=== PATIENT | male | born 1990 | race Caucasian/White ===

== ENCOUNTER 2022-07-16 12:42 | Emergency (ER) | payer MEDICAID, SELFPAY ==
[2022-07-16 13:01] VITALS: BP 150/82; PULSE 96; RESP 19; TEMP 36.7; O2SAT 95; BMI 46.8
--- NOTE | 2022-07-16 13:10 | ED_ITS ---
HPI - Back Pain/Injury General: Chief Complaint: Back Pain/Injury Stated Complaint: back pain Time Seen by Provider: 07/16/22 13:10 History of Present Illness: Patient is a 32-year-old male comes to the ED with back pain. Patient says he has chronic back pain for the past couple years and has flareups like this every couple months. Yesterday patient was working and lifting some heavy equipment. Today he was working on a vehicle and developed intense pain in his lower back. He rates the pain currently a 8 out of 10 and that radiates down both legs. Denies any cauda equina symptoms. Denies any falls or traumas to cause back pain. Associated symptoms: Deny abdominal pain, chills, dysuria, fatigue, fever(s), hematuria, nausea or vomiting Review of Systems Const: Denies: fever(s), chills or fatigue Eyes: Denies: change in vision or eye discomfort ENMT: Denies: throat pain, odynophagia, nasal discharge or nasal congestion Card: Denies: chest pain, palpitations, edema, swelling of feet/ankles, dyspnea on exertion or orthopnea Resp: Denies: dyspnea, productive cough or non-productive cough GI: Denies: abdominal pain, nausea, vomiting, diarrhea, constipation or hematochezia : Denies: flank pain, difficulty urinating, dysuria or hematuria Musc: Reports: back pain; Denies: neck pain or extremity swelling Skin/Breast: Denies: rash or new lesions Neuro: Denies: headache(s), numbness in extremities or weakness in extremities [facility] ED PFSH: Medical History (Updated 07/16/22 @ 14:31 by BERT Hall) No pertinent family history Surgical History (Updated 07/16/22 @ 14:22 by BERT Hall) No pertinent past surgical history Physical Exam Const: COMMON NORMALS: patient oriented x3 and alert GENERAL APPEARANCE: cooperative HENMT: COMMON NORMALS: normocephalic HEAD & SCALP: normocephalic MOUTH: Normal oral and palatal mucosa present THROAT: posterior oropharynx normal and uvula midline Neck/C-Spine: COMMON NORMALS: supple GENERAL: Yes normal visual inspection Resp: COMMON NORMALS: normal respiratory effort, No retractions, No use of accessory muscles and clear to auscultation bilaterally AUSCULTATION: clear to auscultation bilaterally Cardio: COMMON NORMALS: regular rate, regular rhythm, S1 normal heart sound present, S2 normal heart sound present, No gallops present (Cardio), No clicks present (Cardio), No murmurs present (Cardio) and Peripheral pulses 2+ throughout RATE: regular rate RHYTHM: regular rhythm HEART SOUNDS: S1 normal heart sound present and S2 normal heart sound present PERIPHERAL PULSES: Peripheral pulses 2+ throughout GI: COMMON NORMALS: Normal to inspection, nondistended, normoactive bowel sounds present, Soft to palpation, non-tender and no masses PALPATION: Yes Soft to palpation : COMMON NORMALS: Yes no CVA tenderness BLADDER/KIDNEY EXAM: Yes no CVA tenderness Back/Pelvis: COMMON NORMALS: no CVA tenderness LUMBAR SPINE/LOWER BACK: Yes pain with ROM, No lumbar spinal tenderness and Yes paraspinal muscle tenderness Extremity: COMMON NORMALS: normal to inspection Neuro: COMMON NORMALS: patient oriented x3 SENSORIUM/ORIENTATION: Yes alert GAIT: Yes Normal gait present Skin: GENERAL SKIN EXAM: dry skin Course Vital Signs: Vital signs: Vital Signs Temperature 98.0 F 07/16/22 13:01 Pulse Rate 96 07/16/22 13:01 Respiratory Rate 16 07/16/22 14:26 Blood Pressure 150/82 07/16/22 13:01 Pulse Oximetry 95 07/16/22 13:01 Oxygen Delivery Me thod Room Air 07/16/22 13:01 MDM - Back Pain/Injury Medical Decision Making Patient is a 32-year-old male comes to the ED with back pain. Patient says he has chronic back pain for the past couple years and has flareups like this every couple months. Yesterday patient was working and lifting some heavy equipment. Today he was working on a vehicle and developed intense pain in his lower back. He rates the pain currently a 8 out of 10 and that radiates down both legs. Denies any cauda equina symptoms. Denies any falls or traumas to cause back pain. Vitals are stable. X-ray shows osteoarthritis of L3 and L4. Patient was given dose of Toradol, Norflex, morphine and steroid. He was told to follow-up with his PCP in the next week for reevaluation. I placed an order with case management for patient be referred to orthospine specialist in [place]. Return to ED precautions given. Patient understood and agreed with plan. Labs Radiology Impressions Lumbar Spine X-Ray 07/16/22 13:11 Impression: Osteoarthritis L3 and L4 Discharge Plan Discharge Patient Disposition: Home Clinical Impression: Osteoarthritis of lumbar spine Qualifiers: Spinal osteoarthritis complication: with radiculopathy Qualified Code(s): M47.26 - Other spondylosis with radiculopathy, lumbar region Condition: Stable Prescriptions: New meloxicam 15 mg tablet 15 mg PO DAILY PRN (Reason: pain) Qty: 20 0RF cyclobenzaprine 10 mg tablet 10 mg PO BID PRN (Reason: muscle spasm) Qty: 20 0RF Medrol (Marco) 4 mg tablets,dose pack See Rx Instructions .ROUTE .COMPLEX Qty: 21 0RF Rx Instructions: orally per package directions Discharge Orders: Discharge ED (Routine); Ordered 07/16/22 Ordered By: Raz Rodriguez Discharge Diet: Regular Discharge Activity: Increase activity as tolerated Patient Instructions: Lumbar Radiculopathy (ED) Activity Restrictions/Additional Instructions: Follow-up with medical provider as directed in the next 5 to 7 days for reevaluation. Case management will be calling you neck several days to set up an appointment with Ortho clinical rehabilitation specialist. Take medications as prescribed. Return to the ER or your medical provider if condition worsens. Please read and understand discharge instructions. Thank you for choosing [facility] for your healthcare needs today. Please realize this is an emergency room and that we are providing you with a medical screening exam and this may not be complete and all inclusive of all the testing and or work up that you may need to determine your ailment or severity of your illness. It is very important that you follow up as instructed or that you return to the Emergency Department should you have concerns or if your co ndition changes or worsens in any way. Coding Level of Care Code ED Floor Covering Installer for Rupinder Martinez
--- NOTE | 2022-07-16 13:11 | XR_ITS ---
WS: [id number] Lumbar spine, 3 views, 07/16/2022 Clinical Data: low back pain Comparison: None. Findings: No compression fractures or subluxation is seen. No disc space narrowing is seen. There is osteoarthr itic spurring of L3 and L4. The transverse processes and SI joints are normal. XR/XR lumbar spine 2-3V* [id number] Impression: Osteoarthritis L3 and L4
[2022-07-16 14:26] VITALS: RESP 16
[2022-07-16] MEDS: dexamethasone 10 mg/mL INJ IM (14:26)
[2022-07-16] MEDS: morphine 4 mg/mL SDV 1 mL IM (14:26)
[2022-07-16] MEDS: orphenadrine 30 mg/mL Inj 2 mL 60 MG IM (14:27)
[2022-07-16] MEDS: ketorolac 60 mg/2 mL INJ IM (14:33)
--- NOTE | 2022-07-17 09:05 | DCPLANNER ---
clinical nurse manager had message to refer patient to an ortho laboratory specialist - patient would like to be referred to [place]. clinical nurse manager called patient at phone number [phone], unable to speak with patient at this time, a voicemail was left for patient to return case advocate phone call. clinical nurse manager also called patient due to no primary care physician - no answer at this time, a voicemail was left for patient to return case advocate phone call.
--- NOTE | 2022-07-20 11:05 | PC.SOCIAL ---
Addendum entered by Libia Spicer 07/28/22 10:19: land surveying manager called [facility] in [place] to confirm if clinic had received patients information. land surveying manager was told that patients information had been received and a follow up appointment scheduled for patient - patient is aware of appointment. Original Note: Ortho- Spine Consult received for ortho clinical documentation specialist referral; patient wishes to go to [place]. Called and spoke with patient, he does not have a preference of [facility]. CM called and spoke with [facility] in [place], , Faxed referral to [phone]. They will contact patient with appt date/time once they have reviewed referral.
--- NOTE | 2022-07-29 13:23 | DCPLANNER ---
TCM called patient due to no primary care physician - no answer at this time.
== END 2022-07-16 15:00 | disposition home or self-care (01) ==
PROVIDERS: Emergency Provider Physician Assistant
DX: M47.26 Other spondylosis with radiculopathy, lumbar region (principal)
CPT/HCPCS: 72100; 96372; 99284; J1100; J1885; J2270; J2360

== ENCOUNTER 2023-01-12 20:00 | Outpatient (CLI) | payer MEDICAID, SELFPAY | END 2023-01-12 20:01 | disposition home or self-care (01) | LOC: SLEEP 01-13 05:54 | PROVIDERS: Visit Provider Family Medicine | DX: G47.33 Obstructive sleep apnea (adult) (pediatric) (principal) | CPT/HCPCS: 95811 ==

== ENCOUNTER → 2023-05-09 16:50 | Outpatient (BNVA) | payer MEDICAID, SELFPAY | PROVIDERS: Visit Provider Nurse Practitioner | DX: J06.9 Acute upper respiratory infection, unspecified (principal) | CPT/HCPCS: 87400 ==

== ENCOUNTER 2023-06-27 19:06 | Emergency (ER) | payer MEDICAID, SELFPAY ==
[2023-06-27 19:14] VITALS: BP 149/95; PULSE 83; RESP 18; TEMP 36.6; O2SAT 94; BMI 47.1
--- NOTE | 2023-06-27 19:20 | ECG_ITS ---
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 Measurements Intervals [place] Rate: 83 P: 68 MN: 173 QRS: 94 QRSD: 98 T: 63 QT: 367 QTc: 434 Interpretive Statements SINUS RHYTHM BORDERLINE RIGHT AXIS DEVIATION [QRS AXIS > 90] Compared to ECG 07/29/2015 07:41:59 Sinus bradycardia no longer present Electronically Signed On 06-27-2023 22:48:40 CDT by Alex Tanner M.D. [id number]
[2023-06-27 20:00] VITALS: BP 149/95; PULSE 73; RESP 18; O2SAT 94
--- NOTE | 2023-06-27 20:30 | ED_ITS ---
HPI - Anxiety General: Chief Complaint: Anxiety Stated Complaint: anxiety, chest pounding, possible OD Time Seen by Provider: 06/27/23 19:13 History of Present Illness: 33-year-old male presents emergency depa rtment with concerns that he is having a panic attack he states that he was prescribed oxycodone and states that he took 2 of the pills because he had forgotten that he took a previous dose. He states that he started feeling sleepy and then became very anxious and panicky. He is awake alert and oriented he follows commands appropriately he is in no respiratory distress. Review of Systems General: Reports: 10 or more systems reviewed and unremarkable except in HPI and below Psych: Reports: anxiety and panic attacks [facility] ED PFSH: Medical History No pertinent family history Surgical History No pertinent past surgical history Physical Exam Narrative: EXAM NARRATIVE: Constitutional: the patient appears well nourished and of normal development. Vital signs as documented. No acute distress at present. Alert and oriented-to person, place, time and situation. Head, eyes, ears, nose, mouth, throat: Normocephalic, atraumatic. Pupils-equal, round, reactive to light. No scleral icterus. Normal-appearing external ears. Normal appearing nasal turbinates, no drainage. No obvious oral lesions, posterior oropharynx without erythema or exudates. Neck: Supple, trachea is midline, no lymphadenopathy, no jugular venous distension, thyromegaly, or carotid bruits. Carotid upstrokes are brisk bilaterally. Lungs: clear to auscultation to all lung mcghee. Symmetrical rise and fall of chest, no obvious signs of increased work of breathing at present. Cardiac: Regular rate and rhythm, positive S1, S2. No murmurs, rubs or gallops that I can appreciate Abdomen: Soft, non-tender to palpation, normal active bowel sounds to all quadrants. No palpable masses, no organomegaly and abdominal bruits. Extremities: 2+ pulses in the upper extremities that are equal bilaterally, 2+ pulses in the lower extremities that are equal bilaterally. Non-edematous. Moves all extremities well, sensation to all extremities are noted. Skin: Warm, dry, intact. Course Vital Signs: Vital signs: Vital Signs Temperature 97.9 F 06/27/23 19:14 Pulse Rate 73 06/27/23 20:00 Respiratory Rate 18 06/27/23 20:00 Blood Pressure 149/95 06/27/23 20:00 Pulse Oximetry 94 06/27/23 20:00 Oxygen Delivery Me thod Room Air 06/27/23 20:00 MDM - Anxiety Medical Decision Making Physical exam completed and documented twelve-lead EKG obtained the patient is awake alert and oriented we will observe him. 20: 31 reevaluation the patient is awake alert and has remained in no acute distress his vital signs have remained stable he did ambulate to the bathroom without difficulty and back. He is requesting to be discharged home and states he feels much better. He states he just became very nervous about the pain medication. He states that he is not a harm to himself or others he is accompanied by his spouse who will transport him home. Medical Records I reviewed the patient's medical records. No radiology studies performed this visit EKG Data EKG 1: Interpretation: Twelve-lead EKG obtained at 1915 and reviewed at 1920 demonstrates sinus rhythm, ventricular rate 83, AK interval 173, QRS duration 98, QT [address] elevation or depression to demonstrate acute ischemia or infarction at present. Discharge Plan Discharge Patient Disposition: Home Clinical Impression: Acute anxiety Condition: Stable Prescriptions: No Action promethazine-DM 6.25-15 mg/5 mL syrup 5 ml PO Q4H PRN (Reason: cough) Qty: 118 0RF Rx Instructions: Do not exceed more than 30ml/24hour period (6 doses) prednisone 20 mg tablet 60 mg PO DAILY 5 Days Qty: 15 0RF albuterol sulfate 90 mcg/actuation HFA aerosol inhaler 2 inh inhalation Q4H PRN (Reason: shortness of breath or wheezing) Qty: 6.7 0RF Discharge Orders: Discharge ED (Routine); Ordered 06/27/23 Ordered By: Richard Gray Referrals: Romel Moulton MD [Primary Care Provider] - Discharge Diet: Usual diet Discharge Activity: Resume usual activity Patient Instructions: Opioid Safety, Pain Management Activity Restrictions/Additional Instructions: Activity Restrictions/Additional Instructions: Thank you for choosing [facility] for your healthcare needs today. Please realize that you were seen in the Emergency Department and that we are providing you with an emergency medical screening exam and this may not be a complete and all inclusive of all the testing and or medical work-up that you may need to determine your ailment or severity of your illness. It is very important that you follow-up as instructed with your Primary care provider or Specialist for additional evaluation and to discuss your medical treatment plan. You may return to the Emergency Department should you have concerns or if your condition changes or worsens in any way. Coding Level of Care Code ED Maintenance Plumber for Rupinder Martinez
== END 2023-06-27 20:45 | disposition home or self-care (01) ==
PROVIDERS: Emergency Provider Internal Medicine; PCP Family Medicine
DX: F41.9 Anxiety disorder, unspecified (principal)
CPT/HCPCS: 93005; 99283

== ENCOUNTER → 2024-01-02 13:45 | Outpatient (BNVA) | payer MEDICAID, SELFPAY | PROVIDERS: PCP Family Medicine; Visit Provider Emergency Medicine | DX: R61 Generalized hyperhidrosis (principal) | CPT/HCPCS: 93005 ==

== ENCOUNTER 2024-04-01 11:28 | Emergency (ER) | payer MEDICAID, SELFPAY ==
[2024-04-01 12:18] VITALS: BP 123/83; PULSE 86; RESP 20; TEMP 36.9; O2SAT 93; BMI 52.7
[2024-04-01 13:51] LABS: Covid PCR NEGATIVE (Negative); Influenza A POSITIVE (Negative); Influenza B NEGATIVE (Negative); Respiratory Syncytial Virus Ce NEGATIVE (Negative)
--- NOTE | 2024-04-01 17:15 | W.ED.ABDPA2 ---
HPI - Abdominal Pain General: Chief Complaint: Abdominal Pain Stated Complaint: possiable flu , cramps , fever , cough x 2days Time Seen by Provider: 04/01/24 16:14 History of Present Illness: 33-year-old man who presents emergency room with abdominal wall cramping for about 6 months but has become much worse over the last 24 hours. He thinks he might have flu. He had fever last night. He has had some cough. Some malaise. He says the cramping is much worse than it has been over the last 6 months. No nausea or vomiting. No chest pain. No shortness of breath. No altered mental status. Related Data Previous Rx's Medication Instructions Recorded albuterol sulfate 90 mcg/actuation 2 inh inhalation Q4H PRN shortness 05/11/23 aerosol inhaler of breath or wheezing #6.7 grams cyclobenzaprine 10 mg tablet 10 mg PO Q8H PRN muscle spasm #20 04/01/24 tabs diclofenac sodium 50 mg 50 mg PO BID PRN pain #14 tabs 04/01/24 tablet,delayed release oseltamivir 75 mg capsule (Tamiflu) 75 mg PO BID 5 days #10 caps 04/01/24 Allergies Allergy/AdvReac Type Severity Reaction Status Date / Time No Known Allergies Allergy Verified 04/01/24 12:26 Review of Systems Narrative: Constitutional symptoms: Negative except as documented in HPI. Skin symptoms: Negative except as documented in HPI. Eye symptoms: Negative except as documented in HPI. ENMT symptoms: Negative except as documented in HPI. Respiratory symptoms: Negative except as documented in HPI. Cardiovascular symptoms: Negative except as documented in HPI. Gastrointestinal symptoms: Negative except as documented in HPI. Genitourinary symptoms: Negative except as documented in HPI. Musculoskeletal symptoms: Negative except as documented in HPI. Neurologic symptoms: Negative except as documented in HPI. Psychiatric symptoms: Negative except as documented in HPI. Endocrine symptoms: Negative except as documented in HPI. PFSH ED PFSH: Medical History No pertinent family history Surgical History No pertinent past surgical history Social History Smoking and tobacco/nicotine status: unknown if used tobacco/nicotine Physical Exam Narrative: EXAM NARRATIVE: General: Alert, no acute distress. Skin: Warm, dry. Head: Normocephalic, atraumatic. Neck: Supple, trachea midline. Eye: Extraocular movements are intact. Ears, nose, mouth and throat: mucosa moist. Cardiovascular: Regular, Normal peripheral perfusion. Respiratory: Lungs are clear to auscultation, respirations are non-labored, breath sounds are equal, Symmetrical chest wall expansion. Gastrointestinal: Soft, Nontender, Non distended Musculoskeletal: Normal ROM, no deformity. Neurological: Alert and oriented, No focal neurological deficit observed. Psychiatric: Cooperative, appropriate mood & affect. Course Vital Signs: Vital signs: Vital Signs Temperature 98.5 F 04/01/24 12:18 Pulse Rate 83 04/01/24 18:51 Respiratory Rate 16 04/01/24 18:51 Blood Pressure 123/73 04/01/24 18:51 Pulse Oximetry 92 04/01/24 18:51 Oxygen Delivery Me thod Room Air 04/01/24 18:51 MDM - Abdominal Pain Medical Decision Making Lab Review: Laboratory results were reviewed and interpreted by myself the emergency room physician. Patient is influenza A positive. Remainder of lab work is fairly unremarkable. I reviewed the patient's medical record. Reexamination: Patient remained stable. No increased work of breathing. No altered mental status. No focal motor deficits. Assessment and plan: Influenza A ?Toradol and Norflex for his abdominal wall muscle cramps - Discharged home - Discussed plan with patient. Answered any questions. - Evaluation and treatment of this problem were appropriate in the emergency setting. Lab Data 04/01/24 18:12 04/01/24 18:12 Labs/Radiology: Laboratory Results WBC 6.02 10^3/uL (3.29-11.43) 04/01/24 18:12 RBC 5.31 10^6/uL (3.85-5.65) 04/01/24 18:12 Hgb 15.40 g/dL (11.27-16.99) 04/01/24 18:12 Hct 47.1 % (37-53) 04/01/24 18:12 MCV 88.7 fl (82-101) 04/01/24 18:12 MCH 29.0 pg (27-33) 04/01/24 18:12 MCHC 32.7 g/dL (30-55) 04/01/24 18:12 RDW 12.5 % (12.1-15.1) 04/01/24 18:12 Plt Count 214 10^3/cmm (157-399) 04/01/24 18:12 MPV 9.6 fL (7.4-10.4) 04/01/24 18:12 Neut % (Auto) 49.9 % 04/01/24 18:12 Lymph % (Auto) 34.4 % 04/01/24 18:12 [place] % (Auto) 13.0 % 04/01/24 18:12 Eos % (Auto) 0.5 % 04/01/24 18:12 Baso % (Auto) 0.7 % 04/01/24 18:12 Neut # (Auto) 3.01 10^3/uL (1.8-7.7) 04/01/24 18:12 Lymph # (Auto) 2.1 10^3/uL (0.8-4.8) 04/01/24 18:12 [place] # (Auto) 0.8 10^3/uL (0.2-0.9) 04/01/24 18:12 Eos # (Auto) 0.0 10^3/uL (0.0-0.8) 04/01/24 18:12 Baso # (Auto) 0.0 10^3/uL (0.0-0.1) 04/01/24 18:12 Nucleated RBC % (auto) 0 % 04/01/24 18:12 Nucleated RBCs # 0.0 /100WBC 04/01/24 18:12 Sodium 134 mmol/L (136-145) L 04/01/24 18:12 Potassium 3.7 mmol/L (3.5-5.1) 04/01/24 18:12 Chloride 97 mmol/L (98-107) L 04/01/24 18:12 Carbon Dioxide 28 mmol/L (22-29) 04/01/24 18:12 Anion Gap 12.7 (5-19) 04/01/24 18:12 BUN 11 mg/dL (6-20) 04/01/24 18:12 Creatinine 1.0 mg/dL (0.7-1.2) 04/01/24 18:12 GFR Calculation 86.6 mL/min (90-130) L 04/01/24 18:12 Glucose 84 mg/dL (65-115) 04/01/24 18:12 Calculated Osmolality 277 mOsm/kg (285-295) L 04/01/24 18:12 Lactic Acid 0.6 mmol/L (0.5-2.2) 04/01/24 18:12 Calcium 8.8 mg/dL (8.5-10.5) 04/01/24 18:12 Total Bilirubin 0.4 mg/dL (0.15-1.2) 04/01/24 18:12 AST 40 U/L (0-40) 04/01/24 18:12 ALT 70 U/L (0-41) H 04/01/24 18:12 Alkaline Phosphatase 44 U/L (40-130) 04/01/24 18:12 Total Protein 7.1 g/dL (6.6-8.7) 04/01/24 18:12 Albumin 4.1 g/dL (3.5-5.2) 04/01/24 18:12 Globulin 3.0 g/dL (1.3-4.6) 04/01/24 18:12 Lipase 14 U/L (13-60) 04/01/24 18:12 Coronavirus (PCR) Negative (Negative) 04/01/24 12:22 Influenza A (PCR) Positive (Negative) 04/01/24 12:22 Influenza Type B (PCR) Negative (Negative) 04/01/24 12:22 RSV (PCR) Negative (Negative) 04/01/24 12:22 No radiology studies performed this visit Discharge Plan Discharge Patient Disposition: Home Clinical Impression: Influenza A Condition: Stable Prescriptions: New cyclobenzaprine 10 mg tablet 10 mg PO Q8H PRN (Reason: muscle spasm) Qty: 20 0RF oseltamivir [Tamiflu] 75 mg capsule 75 mg PO BID 5 Days Qty: 10 0RF diclofenac sodium 50 mg tablet,delayed release (DR/EC) 50 mg PO BID PRN (Reason: pain) Qty: 14 0RF No Action albuterol sulfate 90 mcg/actuation HFA aerosol inhaler 2 inh inhalation Q4H PRN (Reason: shortness of breath or wheezing) Qty: 6.7 0RF Discharge Orders: Discharge ED (Routine); Ordered 04/01/24 Ordered By: Cecily Ruvalcaba Referrals: Romel Moulton MD [Primary Care Provider] - Discharge Activity: Increase activity as tolerated Patient Instructions: Influenza (ED), Opioid Safety, Pain Management Activity Restrictions/Additional Instructions: Thank you for choosing [facility] for your healthcare needs today. Please realize this is an emergency room and that we are providing you with a medical screening exam and this may not be complete and all inclusive of all the testing and or work up that you may need to determine your ailment or severity of your illness. You have been screened and evaluated and felt safe for discharge. Health conditions do change or evolve sometimes and as such it is important that you follow up with your Primary Doctor to be re checked, 3-5 days is a general good time frame for follow up. You are always welcome to return to the ED for re assessment if your symptoms are worsening or you have new concerns Coding Level of Care Code ED Psychologist Experimental for Rupinder Martinez
[2024-04-01 18:33] LABS: Basophils % 0.7 %; Eosinophils % 0.5 %; Hematocrit 47.1 % (37-53); Lymphocytes # 2.1 10^3/uL (0.8-4.8); Lymphocytes % 34.4 %; Mean Corpuscular HGB Conc 32.7 g/dL (30-55); Mean Corpuscular Volume 88.7 fl (82-101); Mean Platelet Volume 9.6 fL (7.4-10.4); Monocytes # 0.8 10^3/uL (0.2-0.9); Neutrophils # 3.01 10^3/uL (1.8-7.7); Neutrophils % 49.9 %; Nucleated Red Blood Cells % 0 %; Platelet Count 214 10^3/cmm (157-399); Red Blood Count 5.31 10^6/uL (3.85-5.65); Red Cell Distribution Width 12.5 % (12.1-15.1); White Blood Count 6.02 10^3/uL (3.29-11.43)
[2024-04-01] MEDS: ketorolac 30 mg/mL INJ IVP (18:42)
[2024-04-01] MEDS: orphenadrine 30 mg/mL Inj 2 mL 60 MG IVP (18:42)
[2024-04-01] MEDS: acetaminophen 1,000 MG/100 ML PIGGYBACK 400 MG IV (18:42)
[2024-04-01 18:50] LABS: Alanine Aminotransferase 70 U/L (0-41); Albumin Level 4.1 g/dL (3.5-5.2); Alkaline Phosphatase 44 U/L (40-130); Anion Gap 12.7 (5-19); Aspartate Amino Transferase 40 U/L (0-40); Blood Urea Nitrogen 11 mg/dL (6-20); Calcium 8.8 mg/dL (8.5-10.5); Carbon Dioxide 28 mmol/L (22-29); Chloride 97 mmol/L (98-107); Creatinine Clr Calc Pharmacy 180.7722; Glomerular Filtration Rate 86.6 mL/min (90-130); Glucose 84 mg/dL (65-115); Lipase 14 U/L (13-60); Osmolality Calculated 277 mOsm/kg (285-295); Potassium 3.7 mmol/L (3.5-5.1); Sodium 134 mmol/L (136-145); Total Bilirubin 0.4 mg/dL (0.15-1.2); Total Protein 7.1 g/dL (6.6-8.7)
[2024-04-01 18:51] VITALS: BP 123/73; PULSE 83; RESP 16; O2SAT 92
[2024-04-01 18:52] LABS: Lactic Sepsis W/Reflex 0.6 mmol/L (0.5-2.2)
[2024-04-01 19:00] VITALS: BP 100/77; PULSE 79; RESP 16; O2SAT 92
[2024-04-01 19:33] VITALS: BP 103/75; PULSE 86; RESP 16; O2SAT 93
== END 2024-04-01 19:31 | disposition home or self-care (01) ==
PROVIDERS: Nurse Practitioner; Emergency Provider Emergency Medicine; PCP Family Medicine
DX: J10.1 Influenza due to other identified influenza virus with other respiratory manifestations (principal); Z11.52 Encounter for screening for COVID-19
CPT/HCPCS: 36415; 80053; 83605; 83690; 85025; 87637; 96374; 96375; 99284; J0131; J1885; J2360

== ENCOUNTER → 2025-02-27 12:01 | Outpatient (BNVA) | payer SELFPAY | PROVIDERS: PCP Family Medicine; Visit Provider Family Medicine | DX: E16.2 Hypoglycemia, unspecified (principal); R61 Generalized hyperhidrosis; E03.9 Hypothyroidism, unspecified | CPT/HCPCS: 80053; 83036; 83525; 84443; 85025 ==